=== PATIENT | male | born 1975 ===

== ENCOUNTER 2018-07-02 15:32 | Outpatient (REF) | payer OTHER, SELFPAY ==
[2018-07-02 19:00] LABS: HCT 44.9 % (40.0-50.0); Mean Corp. HGB Concentration 33.4 g/dL (32.0-36.0); Mean Corpuscular Hemoglobin 30.4 pg (27.0-33.0); Mean Corpuscular Volume 91.1 fL (80-95); Mean Platelet Volume 10.8 fL (8.0-11.0); Platelet Count 228 x1000/uL (130-400); RBC 4.93 m/cumm (4.50-6.00); RBC Distribution Width 12.4 % (11.8-14.1); White Blood Cell Count 6.03 k/cumm (4.4-10.8)
[2018-07-02 19:10] LABS: Anion Gap 8.1 mmol/L (3-11); BUN 15 mg/dL (7-18); CO2 31.9 mmol/L (21.0-32.0); CREATININE 0.88 mg/dL (0.70-1.30); Calcium 9.2 mg/dL (8.5-10.1); Chloride 100 mmol/L (98-107); Glucose 94 mg/dL (70-100); Potassium 4.5 mmol/L (3.5-5.1); Sodium 140 mmol/L (136-145); TSH 2.06 uIU/mL (0.358-3.74)
[2018-07-05 08:43] LABS: Lyme Ab w Rflx to Lyme Confirm Negative
== END 2018-07-02 15:52 ==
LOC: NCHCN 15:32
PROVIDERS: PCP Nurse Practitioner Family; Visit Provider Nurse Practitioner Family
DX: A93.8 Other specified arthropod-borne viral fevers (principal)
CPT/HCPCS: 80048; 85027; 84443; 86618

== ENCOUNTER 2020-06-18 09:50 | Outpatient (REF) | payer OTHER, SELFPAY | END 2020-06-18 10:10 | LOC: NCHCN 09:50 | PROVIDERS: PCP Nurse Practitioner Family; Visit Provider Nurse Practitioner Family | DX: Z20.828 Contact with and (suspected) exposure to other viral communicable diseases (principal) | CPT/HCPCS: U0003 ==